=== PATIENT | male | born 1975 | race Caucasian/White ===

== ENCOUNTER 2023-09-25 15:50 | Inpatient (IN) | payer OTHER ==
[2023-09-25] MEDS ORDERED: ONDANSETRON 4 MG/2 ML VIAL IVP PRN (16:10)
[2023-09-25] MEDS ORDERED: LORazepam 2 MG/ML INJ IV PRN (16:10)
[2023-09-25] MEDS: SODIUM CHLORIDE 0.9% 1,000 ML IV STA ×2 (16:27→16:28)
[2023-09-25] MEDS: LORazepam 2 MG/ML INJ IV STA (16:28)
[2023-09-25] MEDS: THIAMINE 100 MG/ML 2 ML VIAL IM STA (16:30)
--- NOTE | 2023-09-25 16:32 | ED ---
General Adult HPI - General Chief complaint: Alcohol Stated complaint: ETOH Time Seen by Provider: 09/25/23 16:01 Source: patient, family, RN notes reviewed, old records reviewed Mode of arrival: wheelchair Limitations: altered mental status - History of Present Illness Initial comments: Patient is a 47-year-old male who presents emergency department over concern for alcohol abuse and alcohol withdrawals. States he does not want to continue to drink. Has a history of withdrawals in the past. Presents for further evaluation at this time. Was brought in by as he is uncomfortable with withdrawing at home. Does not know any rehab facility to go to. Patient's states that he expressed generalized suicidal thoughts, but no blas idea of wanting to hurt himself. Just discussed generally that when he is gone with the family we will have to do. Patient currently intoxicated. Last drink earlier today. Presents for further evaluation. Denies any other acute complaints. - Related Data Home Medications Medication Instructions Recorded Confirmed No Known Home Medications 09/25/23 09/25/23 Allergies Allergy/AdvReac Type Severity Reaction Status Date / Time No Known Allergies Allergy Verified 09/25/23 17:31 Review of Systems ROS Statement: Those systems with pertinent positive or pertinent negative responses have been documented in the HPI. Review of Systems: CONST: Denies fever EYES: Denies blurry vision ENT: Denies nasal congestion C/V: Denies Chest pain RESP: Denies shortness of breath GI: Denies abdominal pain : Denies dysuria SKIN: Denies rash. MSK: Denies joint pain. NEURO: Denies headache ROS Other: All systems not noted in ROS Statement are negative. Past Medical History Past Medical History: No Reported History History of Any Multi-Drug Resistant Organisms: None Reported Additional Past Surgical History / Comment(s): Eye Past Psychological History: No Psychological Hx Reported Smoking Status: Never smoker Past Alcohol Use History: Abuse, Daily Past Drug Use History: None Reported General Exam - General Exam Comments Initial Comments: General: Appears intoxicated with alcohol. HEAD: Normal with no signs of head trauma. EYES: PERRLA, EOMI, conjunctiva normal, no discharge. Pupils are 3 mm and equal bilaterally. ENT: Hearing grossly intact, normal oropharynx. RESPIRATORY: Clear breath sounds bilaterally. No wheezes, rales, or rhonchi. C/V: Regular rate and rhythm. S1 and S2 auscultated, no edema, peripheral pulses 2+ and intact throughout ABD: Abd is soft, nontender, nondistended EXT: Normal range of motion, no obvious deformity SKIN: No rashes or lesions observed on exposed skin. NEURO: Alert and oriented x 4. Cranial nerves II-XII intact. No focal sensory or strength deficits. No active alcohol withdrawals at this time. Limitations: altered mental status Course Vital Signs 09/25/23 09/25/23 15:51 19:51 Temperature 98.0 F Pulse Rate 82 110 H Respiratory 18 18 Rate Blood Pressure 128/96 133/100 O2 Sat by Pulse 96 97 Oximetry Medical Decision Making - Medical Decision Making Was pt. sent in by a medical professional or institution (, PA, COLLISION MECHANIC, urgent care, hospital, or longterm...) When possible be specific @ -No Did you speak to anyone other than the patient for history (EMS, parent, family, police, friend...)? What history was obtained from this source @ -Patient's assist with patient's past medical history. Did you review nursing and triage notes (agree or disagree)? Why? @ -I reviewed and agree with nursing and triage notes Were old charts reviewed (outside hosp., previous admission, EMS record, old EKG, old radiological studies, urgent care reports/EKG's, longterm records)? Report findings @ -Old charts reviewed. Differential Diagnosis (chest pain, altered mental status, abdominal pain women, abdominal pain men, vaginal bleeding, weakness, fever, dyspnea, syncope, headache, dizziness, GI bleed, back pain, seizure, CVA, palpatations, mental health, musculoskeletal)? @ -Alcohol withdrawals, dehydration, acute intoxication. This list is not all inclusive. EKG interpreted by me (3pts min.). @ -As above X-rays interpreted by me (1pt min.). @ -None done CT interpreted by me (1pt min.). @ -None done U/S interpreted by me (1pt. min.). @ -None done What testing was considered but not performed or refused? (CT, X-rays, U/S, labs)? Why? @ -None What meds were considered but not given or refused? Why? @ -None Did you discuss the management of the patient with other professionals (professionals i.e. , PA, COLLISION MECHANIC, lab, RT, psych nurse, 7th grade social studies teacher, director operating, teacher, chief business officer, case therapist)? Give summary @ -I spoke with Dr. Walls who accepted the admission and was in agreement the plan. Was smoking cessation discussed for >3mins.? @ -No Was critical care preformed (if so, how long)? @ -No Were there social determinants of health that impacted care today? How? (Homelessness, low income, unemployed, alcoholism, drug addiction, transportation, low edu. Level, literacy, decrease access to med. care, [facility] [facility], rehab)? @ -No Was there de-escalation of care discussed even if they declined (Discuss DNR or withdrawal of care, Hospice)? DNR status @ -No What co-morbidities impacted this encounter? (DM, HTN, Smoking, COPD, CAD, Cancer, CVA, ARF, Chemo, Hep., AIDS, mental health diagnosis, sleep apnea, morbid obesity)? @ -None Was patient admitted / discharged? Hospital course, mention meds given and route, prescriptions, significant lab abnormalities, going to OR and other pertinent info. @ -Based on the patient's presentation and physical exam, presents emergency department over concern for the early signs of alcohol drugs. Does not plan on drinking if he is discharged. Currently has no significant evidence of withdrawals at this time. However patient appears acutely intoxicated with alcohol at this time. Family states that patient has had nonspecific suicidal statements but is not acutely suicidal. They brought him to the hospital for the withdrawal process and is they are uncertain what else to do at this time. Patient was in agreement this plan does not plan on drinking again. Presents for further evaluation. Vital signs within acceptable limits. EKG shows no signs of acute ischemia.Patient's laboratory studies remarkable for alcohol intoxication at the range of 94. I updated the patient as well as . Patient's petitioned patient at this time for suicidal statements made to her. Psychiatry will be consulted. Suicide precautions ordered. Sitter ordered. Patient will be admitted for alcohol intoxication as well as alcohol withdrawals. Patient was in agreement this plan as well as the . CIWA protocol is ordered. I spoke with the admitting physician, Dr. Walls who accepted the admission. Undiagnosed new problem with uncertain prognosis? @ -No Drug Therapy requiring intensive monitoring for toxicity (Heparin, Nitro, Insulin, Cardizem)? @ -No Were any procedures done? @ -No Diagnosis/symptom? @ -Alcohol intoxication, alcohol withdrawals, suicidal ideations Acute, or Chronic, or Acute on Chronic? @ -Acute Uncomplicated (without systemic symptoms) or Complicated (systemic symptoms)? @ -Complicated Side effects of treatment? @ -None Exacerbation, Progression, or Severe Exacerbation] @ -No Poses a threat to life or bodily function? @ -Yes - Lab Data Result diagrams: 09/25/23 16:20 09/25/23 16:20 Lab Results 09/25/23 09/25/23 09/25/23 Range/Units 16:20 16:20 16:20 WBC 8.9 (3.8-10.6) k/uL RBC 5.36 (4.30-5.90) m/uL Hgb 15.9 (13.0-17.5) gm/dL Hct 48.0 (39.0-53.0) % MCV 89.6 (80.0-100.0) fL MCH 29.6 (25.0-35.0) pg MCHC 33.0 (31.0-37.0) g/dL RDW 13.5 (11.5-15.5) % Plt Count 360 (150-450) k/uL MPV 7.2 Neutrophils % 62 % Lymphocytes % 26 % Monocytes % 8 % Eosinophils % 0 % Basophils % 1 % Neutrophils # 5.5 (1.3-7.7) k/uL Lymphocytes # 2.3 (1.0-4.8) k/uL Monocytes # 0.7 (0-1.0) k/uL Eosinophils # 0.0 (0-0.7) k/uL Basophils # 0.1 (0-0.2) k/uL Sodium 139 (137-145) mmol/L Potassium 4.0 (3.5-5.1) mmol/L Chloride 100 (98-107) mmol/L Carbon Dioxide 23 (22-30) mmol/L Anion Gap 16 mmol/L BUN 8 L (9-20) mg/dL Creatinine 0.72 (0.66-1.25) mg/dL Est GFR (CKD-EPI)AfAm >90 (>60 ml/min/1.73 sqM) Est GFR (CKD-EPI)NonAf >90 (>60 ml/min/1.73 sqM) Glucose 81 (74-99) mg/dL Calcium 9.0 (8.4-10.2) mg/dL Magnesium 2.2 (1.6-2.3) mg/dL Total Bilirubin 0.7 (0.2-1.3) mg/dL AST 60 H (17-59) U/L ALT 75 H (4-49) U/L Alkaline Phosphatase 109 (38-126) U/L Total Protein 7.6 (6.3-8.2) g/dL Albumin 4.8 (3.5-5.0) g/dL Amylase 105 (30-110) U/L Lipase 115 (23-300) U/L Urine Color Colorless Urine Appearance Clear (Clear) Urine pH 6.5 (5.0-8.0) Ur Specific [place] 1.003 (1.001-1.035) Urine Protein Negative (Negative) Urine Glucose (UA) Negative (Negative) Urine Ketones 1+ H (Negative) Urine Blood Negative (Negative) Urine Nitrite Negative (Negative) Urine Bilirubin Negative (Negative) Urine Urobilinogen <2.0 (<2.0) mg/dL Ur Leukocyte Esterase Negative (Negative) Serum Alcohol 384 H* mg/dL - EKG Data -: EKG Interpreted by Me EKG Comments: 12-lead Electrocardiogram Interpretation Note EKG was reviewed and interpreted by myself. 12-lead ECG performed at 1623 is interpreted by me as revealing normal sinus rhythm at a rate of 93 beats per minute. [place] is normal. SC interval is 145 ms, QRS duration is 94 ms, QTc is 390 ms.. There were no ST or T wave abnormalities to suggest myocardial ischemia or injury. R wave progression across the precordium was satisfactory. By my interpretation this EKG is non-diagnostic for acute ischemia. Disposition Clinical Impression: Alcoholic intoxication, Alcohol withdrawal, Suicidal ideations Disposition: ADMITTED IP TO THIS HOSP Condition: Stable Time of Disposition: 18:05
[2023-09-25 16:45] LABS: Basophils # (A) 0.1 k/uL (0-0.2); Basophils % (A) 1 %; Eosinophils % (A) 0 %; HGB 15.9 gm/dL (13.0-17.5); Lymphocytes # (A) 2.3 k/uL (1.0-4.8); Lymphocytes % (A) 26 %; MCH 29.6 pg (25.0-35.0); MCV 89.6 fL (80.0-100.0); Mean Platelet Volume 7.2; Monocytes # (A) 0.7 k/uL (0-1.0); Monocytes % (A) 8 %; Neutrophils # (A) 5.5 k/uL (1.3-7.7); Neutrophils % (A) 62 %; Platelet Count 360 k/uL (150-450); RBC 5.36 m/uL (4.30-5.90); RDW 13.5 % (11.5-15.5); WBC 8.9 k/uL (3.8-10.6)
[2023-09-25 17:02] LABS: ALT 75 U/L (4-49); AST 60 U/L (17-59); African American GFR (CKD) >90 (>60 ml/min/1.73 sqM); Albumin 4.8 g/dL (3.5-5.0); Alkaline Phosphatase 109 U/L (38-126); Amylase 105 U/L (30-110); Anion Gap 16 mmol/L; Blood Urea Nitrogen 8 mg/dL (9-20); Carbon Dioxide 23 mmol/L (22-30); Chloride 100 mmol/L (98-107); Glucose 81 mg/dL (74-99); Lipase 115 U/L (23-300); Magnesium 2.2 mg/dL (1.6-2.3); Non-African American GFR(CKD) >90 (>60 ml/min/1.73 sqM); Sodium 139 mmol/L (137-145); Total Bilirubin 0.7 mg/dL (0.2-1.3); Total Protein 7.6 g/dL (6.3-8.2)
[2023-09-25 17:21] LABS: Alcohol 384 mg/dL
[2023-09-25 17:59] LABS: Appearance,Urine Clear (Clear); Bilirubin,Urine Negative (Negative); Blood,Urine Negative (Negative); Color,Urine Colorless; Glucose,Urine (UA) Negative (Negative); Ketones,Urine 1+ (Negative); Leukocyte Esterase,Urine Negative (Negative); Nitrite,Urine Negative (Negative); PH, Urine 6.5 (5.0-8.0); Protein,Urine Negative (Negative); Specific Gravity,Urine 1.003 (1.001-1.035); Urobilinogen,Urine <2.0 mg/dL (<2.0)
[2023-09-25] MEDS ORDERED: ACETAMINOPHEN TAB 325 MG TAB PO PRN (18:16)
[2023-09-25] MEDS ORDERED: NALOXONE 0.4 MG/ML 1 ML VIAL IV PRN (18:16)
[2023-09-25] MEDS: LORazepam 2 MG/ML INJ IV PRN (19:57)
[2023-09-25] MEDS: NICOTINE 14MG/24HR PATCH TRANSDERM STA (22:21)
--- NOTE | 2023-09-26 02:33 | HP ---
HISTORY AND PHYSICAL HISTORY OF PRESENT ILLNESS: A 47-year-old white male, alcohol abuse, alcohol withdrawals, came in due to withdrawals, uncomfortable, withdrawing at home. He has expressed suicidal from his . He is currently intoxicated. He came to the hospital. HOME MEDICATIONS: Negative. ALLERGIES: Negative. REVIEW OF SYSTEMS: A 14-point review of systems otherwise negative. PAST MEDICAL HISTORY: Daily alcohol, excessive alcohol abuse. PHYSICAL EXAMINATION: HEENT: Pupils are equal, round, reactive. Head, normocephalic, atraumatic. LUNGS: Clear. CARDIOVASCULAR: S1, S2. ABDOMEN: Soft. EXTREMITIES: Mild tremors. NEUROLOGIC: Cranial nerves are intact. PSYCH: Altered mental status. VITAL SIGNS: Temp 98, pulse is 82 to 110, respiratory rate 16 to 18, blood pressure 120s to 130s over 96 to 100, O2 of 96% to 97%. LABORATORY DATA: White count is 8.9, hemoglobin is 15.9, sodium 139, potassium 4.0. EKG, sinus rhythm. ASSESSMENT: Alcohol intoxication, alcohol withdrawal, suicidal ideations. Psych consult. [facility] protocol. Sitter due to depression. Wait for psychiatrist. Prognosis guarded. Alcohol suppression therapy will be discussed with the patient. MMODL / IJN: [id number] /
[2023-09-26] MEDS: SODIUM CHLORIDE 0.9% 1,000 ML IV ONE (06:24)
[2023-09-26] MEDS: CALCIUM CARBONATE 500 MG CHEWABLE PO STA (07:24)
[2023-09-26] MEDS: LORazepam 2 MG/ML INJ IV PRN (08:02)
[2023-09-26] MEDS: THIAMINE 100 MG TAB PO SCH (08:58)
[2023-09-26] MEDS: SODIUM CHLORIDE 0.9% 1,000 ML IV SCH (11:43)
[2023-09-26 12:22] LABS: ALT 73 U/L (4-49); AST 58 U/L (17-59); African American GFR (CKD) >90 (>60 ml/min/1.73 sqM); Albumin 4.2 g/dL (3.5-5.0); Albumin/Globulin Ratio 1.6; Alkaline Phosphatase 103 U/L (38-126); Anion Gap 8 mmol/L; Blood Urea Nitrogen 12 mg/dL (9-20); Calcium 9.1 mg/dL (8.4-10.2); Carbon Dioxide 24 mmol/L (22-30); Chloride 105 mmol/L (98-107); Globulin 2.7 g/dL; Glucose 88 mg/dL (74-99); Non-African American GFR(CKD) >90 (>60 ml/min/1.73 sqM); Potassium 4.2 mmol/L (3.5-5.1); Sodium 137 mmol/L (137-145); Total Bilirubin 0.7 mg/dL (0.2-1.3); Total Protein 6.9 g/dL (6.3-8.2)
--- NOTE | 2023-09-26 14:29 | P.CN ---
Psychiatric Consult - . Consult date: 09/26/23 Consult:: 09/26/23 13:47 IDENTIFYING DATA: This patient is a 27-year-old male currently lives alone in a house, he is , he has 2 kids, he works in [employer] REASON FOR REFERRAL: Psychiatry was consulted for suicidal ideations, petitioned and alcohol abuse HISTORY OF PRESENT ILLNESS: The patient presented to the hospital on 09/24 complaining of alcohol use and withdrawal. Patient was intoxicated with a blood alcohol level of 3-4. LFTs were elevated. Patient apparently had a history of severe withdrawals, he apparently was suicidal, with no plan. Patient's Margaret filled out a petition stating that patient has a chronic history of alcohol use which has been worsening and affecting him and his life, petition also states that he told the to take care of the kids because he was going to shoot himself with his gun. Patient's nurse claims that patient has poor recollection of what happened, has been going through withdrawals and is tachycardic. Patient's was agreeable to speak to senior copywriter with patient's permission outside in the hallway. She states that patient and him has been in her have been going through a divorce and she has moved out already. She states that the final hearing for the divorce is on Friday. She states that he has been dealing with chronic alcohol use which has progressively worsened. She states that he called her asking her for help, claiming that he was not able to stop using alcohol and was feeling very depressed, she also states that he informed her that he was going to shoot himself. Patient was seen at the bedside and agreeable to speak to senior copywriter. He claims that his alcohol use has worsened, claims that he has been feeling depressed, endorsing anxiety at this time due to the withdrawals from the alcohol. He claims that he "cannot stop" and was minimizing his need for being in the hospital and wanted to be discharged. He appears to have very poor insight and judgment. He is now minimizing the suicidal statements that he was making earlier. Claims that his sleep and appetite are poor, claims that he is not able to take care of himself at home well. At this time patient denies any current suicidal or homical ideations, intent or plan. Patient denies any auditory, visual hallucinations and denies any paranoia or delusions. Patients admits to using alcohol as noted above for several years, heavy use, denies any other recreational drug use. Admits to nicotine dependence. Claims that he has access to firearms at home. He was focused on discharge and minimizing. PAST PSYCHIATRIC HISTORY: Patient has a a history of alcohol use, depression and anxiety. Patient denies being on any psychiatric medications. Patient denies any previous psychiatric hospitalizations. Patient denies any psychiatric outpatient follow-up. He does claim that he works with a therapist named Hermilo from [employer]. Patient denies any history of suicide attempts in the past. He did state that he has access to guns at home Past Medical History: No Reported History History of Any Multi-Drug Resistant Organisms: None Reported Additional Past Surgical History / Comment(s): Eye Past Psychological History: No Psychological Hx Reported Smoking Status: Never smoker Past Alcohol Use History: Abuse, Daily Past Drug Use History: None Reported ALLERGIES: as per EMR. CHEMICAL DEPENDENCY HISTORY: as per HPI. FAMILY PSYCHIATRIC/SUBSTANCE USE HISTORY: Denies SOCIAL HISTORY: Patient was born and raised in [place] and also in [place]. He states that he completed high school and did some college and also finished trade school. He states that he does not have a DUI in the past or no other legal issues. He has 2 kids, he is , he lives alone in a house. MENTAL STATUS EXAM: General Appearance: Patient appears to be mildly overweight, short hair, stated age is alert, superficial and evasive. Patient appears to have [poor hygiene and grooming wearing hospital gown with fair eye contact. Behavior: Patient is calmly lying in bed without any agitated behavior. Mild tremors. Speech: Patient's speech is fluent and nonpressured. Hesitant Mood/Affect: Patient reports their mood is "depressed", affect is congruent and constricted Suicidality/Homicidality: Patient denies having any suicidal or homicidal ideation intent or plan. Perceptions: Patient denies any visual hallucinations and denies any auditory hallucinations Though content/process: There is no evidence of any delusional thought content and thought process is linear and goal-directed. Minimizing his need for treatment and to be in the hospital. Memory and concentration: AOX3, grossly intact for the purposes of this session. Can spell "WORLD" backwards Judgment and insight: Poor/impulsive IMPRESSIONS: Depressive disorder unspecified Alcohol use disorder, severe dependence, currently in withdrawal Nicotine dependence Marital problems PLAN: -At this time patient DOES meet criteria for inpatient psychiatric admission. -Would recommend the following medication changes/additions: Will hold off on antidepressant medications until patient is admitted to the mental health unit. Continue medical management for alcohol withdrawal. Started Librium 25 mg 3 times daily scheduled for alcohol withdrawal with 1 dose of 50 mg now. -CIWA protocol with PRN Ativan for alcohol withdrawal. Continue to monitor vital signs. -Continue 1:1 sitter for safety until patient is admitted to the mental health unit -Cannot leave AMA at this time. Patient will need a petition and certification if attempting to leave AMA. -Wardrobe Coordinator spoke with patient about substance abuse and the harmful effects on medical and mental health, patient verbally understood and agreed. -When medically stable, patient is eligible for transfer to a psych bed when available. Patient should remain on the medical floors for alcohol withdrawal treatment for 24 to 48 hours at least before being cleared for psych -Communicated plan to patient's nurse -Psychiatry will sign off at this time -Please contact with any questions. 09/26/23 14:21
[2023-09-26] MEDS: chlordiazePOXIDE 25 MG CAP PO STA (14:39)
--- NOTE | 2023-09-26 15:02 | P.PN ---
Subjective Progress Note Date: 09/26/23 * 47-year-old male who presents emergency department over concern for alcohol abuse and alcohol withdrawals. Workup initiated in ER included hematology which were essentially negative, serum chemistry obtained showed normal sodium and potassium levels, liver profile obtained showed AST of 60 ALT of 75. Serum alcohol level 384 * 09/26/23 : Patient seen and evaluated, patient been monitored for alcohol withdrawal, vitals reviewed, follow-up on CMP and CBC levels ordered. Patient had suicidal ideation for which psychiatry consulted on admission. Patient counseled cannot leave AGAINST MEDICAL ADVICE noted to have sinus a Cardia fluid bolus given to be given 1 dose of phenobarbital as well at bedside will need consultations from car psychiatry REVIEW OF SYSTEMS: , anxious CONSTITUTIONAL: No fever, no malaise, no fatigue. HEENT: No recent visual problems or hearing problems. Denied any sore throat. CARDIOVASCULAR: No chest pain, orthopnea, PND, no palpitations, no syncope. PULMONARY: No shortness of breath, no cough, no hemoptysis. GASTROINTESTINAL: No diarrhea, no nausea, no vomiting, no abdominal pain. NEUROLOGICAL: No headaches, no weakness, no numbness. HEMATOLOGICAL: Denies any bleeding or petechiae. GENITOURINARY: Denies any burning micturition, frequency, or urgency. MUSCULOSKELETAL/RHEUMATOLOGICAL: Denies any joint pain, swelling, or any muscle pain. ENDOCRINE: Denies any polyuria or polydipsia. PHYSICAL EXAMINATION: GENERAL: The patient is alert and oriented x3, not in any acute distress. Well developed, well nourished. HEENT: Pupils are round and equally reacting to light. EOMI. CARDIOVASCULAR: S1 and S2 present. tachycardia noted PULMONARY: Chest is clear to auscultation, no wheezing or crackles. ABDOMEN: Soft, nontender, nondistended, normoactive bowel sounds. No palpable organomegaly. MUSCULOSKELETAL: No joint swelling or deformity. EXTREMITIES: No cyanosis, clubbing, or pedal edema. NEUROLOGICAL: Gross neurological examination did not reveal any focal deficits. SKIN: No rashes. Assessment and plan Alcohol intoxication with impending withdrawal Suicidal ideation Transaminitis secondary to alcohol use sinus tachycardia * In regards to alcohol withdrawal continue to monitor on CIWA protocol, use Ativan as needed monitor for withdrawal seizures * Regards to suicidal ideation continue to maintain maximum safety precautions, continue with sitter * Regards to transaminitis follow-up on liver profile. Continue patient on fluid resuscitation * Status is full code Objective - Vital Signs Vital signs: Vital Signs Temp 98.0 F 09/25/23 15:51 Pulse 114 H 09/26/23 10:15 Resp 17 09/26/23 10:15 BP 123/90 09/26/23 10:15 Pulse Ox 95 09/26/23 10:15 FiO2 Intake & Output 09/25/23 09/26/23 09/26/23 18:59 06:59 18:59 Weight 95.254 kg - Labs CBC & Chem 7: 09/25/23 16:20 09/26/23 11:23 Labs: Abnormal Lab Results - Last 24 Hours (Table) 09/25/23 09/25/23 Range/Units 16:20 16:20 BUN 8 L (9-20) mg/dL AST 60 H (17-59) U/L ALT 75 H (4-49) U/L Urine Ketones 1+ H (Negative) Serum Alcohol 384 H* mg/dL
[2023-09-26] MEDS: METOPROLOL TARTRATE 5 MG/5 ML VIAL IVP PRN (15:04)
[2023-09-26] MEDS: PHENobarbital SODIUM 130 MG/ML 1 ML VIAL IV STA (15:22)
[2023-09-26] MEDS: chlordiazePOXIDE 25 MG CAP PO SCH (15:40)
[2023-09-26 16:33] LABS: Basophils # (A) 0.06 X 10*3/uL (0.00-0.10); Basophils % (A) 0.7 %; Eosinophils # (A) 0.01 X 10*3/uL (0.04-0.35); Eosinophils % (A) 0.1 %; HCT 43.2 % (39.6-50.0); HGB 14.6 g/dL (13.0-17.0); Lymphocytes # (A) 1.46 X 10*3/uL (0.90-5.00); Lymphocytes % (A) 16.1 %; MCH 29.3 pg (27.0-32.0); MCHC 33.8 g/dL (32.0-37.0); MCV 86.6 FL (80.0-97.0); Mean Platelet Volume 10.2 FL (9.5-12.2); Monocytes % (A) 12.1 %; NRBC Per 100 WBC 0 X 10*3/uL (0.00-0.01); Neutrophils # (A) 6.38 X 10*3/uL (1.80-7.70); Neutrophils % (A) 70.4 %; Platelet Count 301 X 10*3/uL (140-440); RBC 4.99 X 10*6/uL (4.40-5.60); RDW 13.8 % (11.5-14.5); WBC 9.06 X 10*3/uL (4.50-10.00)
[2023-09-26] MEDS: NICOTINE 21MG/24HR PATCH TRANSDERM SCH (17:35)
[2023-09-27 07:33] LABS: HCT 44.7 % (39.0-53.0); HGB 14.6 gm/dL (13.0-17.5); MCH 29.5 pg (25.0-35.0); MCHC 32.7 g/dL (31.0-37.0); MCV 90.4 fL (80.0-100.0); Mean Platelet Volume 8.1; Platelet Count 275 k/uL (150-450); RBC 4.94 m/uL (4.30-5.90); RDW 13.6 % (11.5-15.5); WBC 8.5 k/uL (3.8-10.6)
[2023-09-27 07:40] LABS: ALT 66 U/L (4-49); AST 47 U/L (17-59); African American GFR (CKD) >90 (>60 ml/min/1.73 sqM); Albumin 3.8 g/dL (3.5-5.0); Alkaline Phosphatase 82 U/L (38-126); Anion Gap 9 mmol/L; Blood Urea Nitrogen 14 mg/dL (9-20); Calcium 8.9 mg/dL (8.4-10.2); Carbon Dioxide 26 mmol/L (22-30); Chloride 102 mmol/L (98-107); Glucose 73 mg/dL (74-99); Non-African American GFR(CKD) >90 (>60 ml/min/1.73 sqM); Potassium 3.5 mmol/L (3.5-5.1); Sodium 137 mmol/L (137-145); Total Bilirubin 1.3 mg/dL (0.2-1.3); Total Protein 6.3 g/dL (6.3-8.2)
--- NOTE | 2023-09-27 13:23 | P.PN ---
Subjective Progress Note Date: 09/27/23 * 47-year-old male who presents emergency department over concern for alcohol abuse and alcohol withdrawals. Workup initiated in ER included hematology which were essentially negative, serum chemistry obtained showed normal sodium and potassium levels, liver profile obtained showed AST of 60 ALT of 75. Serum alcohol level 384 * 09/26/23 : Patient seen and evaluated, patient been monitored for alcohol withdrawal, vitals reviewed, follow-up on CMP and CBC levels ordered. Patient had suicidal ideation for which psychiatry consulted on admission. Patient counseled cannot leave AGAINST MEDICAL ADVICE noted to have sinus a Cardia fluid bolus given to be given 1 dose of phenobarbital as well at bedside will need consultations from psychiatry * 09/27/23 : patient seen and evaluated bedside, blood work reviewed, vitals reviewed, heart rate improving continue fluid resuscitation liver profile reviewed a LT 66 AST 43 bilirubin 1.3, patient remains asymptomatic denies of any acute issues patient states he is feeling better. Patient explained he needs to follow-up with psychiatry and will need to go to behavioral health unit REVIEW OF SYSTEMS: , Not anxious CONSTITUTIONAL: No fever, no malaise, no fatigue. HEENT: No recent visual problems or hearing problems. Denied any sore throat. CARDIOVASCULAR: No chest pain, orthopnea, PND, no palpitations, no syncope. PULMONARY: No shortness of breath, no cough, no hemoptysis. GASTROINTESTINAL: No diarrhea, no nausea, no vomiting, no abdominal pain. NEUROLOGICAL: No headaches, no weakness, no numbness. HEMATOLOGICAL: Denies any bleeding or petechiae. GENITOURINARY: Denies any burning micturition, frequency, or urgency. MUSCULOSKELETAL/RHEUMATOLOGICAL: Denies any joint pain, swelling, or any muscle pain. ENDOCRINE: Denies any polyuria or polydipsia. PHYSICAL EXAMINATION: GENERAL: The patient is alert and oriented x3, not in any acute distress. Well developed, well nourished. HEENT: Pupils are round and equally reacting to light. EOMI. CARDIOVASCULAR: S1 and S2 present. tachycardia noted PULMONARY: Chest is clear to auscultation, no wheezing or crackles. ABDOMEN: Soft, nontender, nondistended, normoactive bowel sounds. No palpable organomegaly. MUSCULOSKELETAL: No joint swelling or deformity. EXTREMITIES: No cyanosis, clubbing, or pedal edema. NEUROLOGICAL: Gross neurological examination did not reveal any focal deficits. SKIN: No rashes. Assessment and plan Alcohol intoxication with impending withdrawal Suicidal ideation Transaminitis secondary to alcohol use sinus tachycardia * In regards to alcohol withdrawal continue to monitor on CIWA protocol, use Ativan as needed monitor for withdrawal seizures, continue Librium * Regards to suicidal ideation continue to maintain maximum safety precautions, continue with sitter, will need inpatient psychiatric hospitalization once patient has recovered from withdrawal * Regards to transaminitis follow-up on liver profile. Continue patient on fluid resuscitation * Transient elevation in blood pressure noted from withdrawal as needed hydralazine ordered * Status is full code Objective - Vital Signs Vital signs: Vital Signs Temp 97.1 F L 09/26/23 23:19 Pulse 102 H 09/27/23 08:00 Resp 16 09/27/23 08:00 BP 140/94 09/27/23 08:00 Pulse Ox 97 09/27/23 08:00 FiO2 Intake & Output 09/26/23 09/27/23 09/27/23 18:59 06:59 18:59 Intake Total 240 480 118 Balance 240 480 118 Weight 95.254 kg Intake: Oral 240 480 118 Other: # Voids 1 2 - Labs CBC & Chem 7: 09/27/23 06:07 09/27/23 06:07 Labs: Abnormal Lab Results - Last 24 Hours (Table) 09/26/23 09/26/23 09/27/23 Range/Units 11:23 11:23 06:07 Immature Gran # 0.05 H (0.00-0.04) X 10*3/uL Monocytes # 1.10 H (0.20-1.00) X 10*3/uL Eosinophils # 0.01 L (0.04-0.35) X 10*3/uL Glucose 73 L (74-99) mg/dL ALT 73 H 66 H (4-49) U/L
[2023-09-27] MEDS: hydrALAZINE HCL 20 MG/ML 1 ML VIAL IVP PRN (14:24)
[2023-09-28 09:40] LABS: HCT 52.8 % (39.0-53.0); HGB 16.7 gm/dL (13.0-17.5); MCH 29.7 pg (25.0-35.0); MCHC 31.7 g/dL (31.0-37.0); MCV 93.8 fL (80.0-100.0); Mean Platelet Volume 7.7; Platelet Count 267 k/uL (150-450); RBC 5.62 m/uL (4.30-5.90); RDW 13.5 % (11.5-15.5); WBC 9.4 k/uL (3.8-10.6)
[2023-09-28 09:59] LABS: ALT 109 U/L (4-49); AST 77 U/L (17-59); African American GFR (CKD) >90 (>60 ml/min/1.73 sqM); Albumin 4.4 g/dL (3.5-5.0); Alkaline Phosphatase 84 U/L (38-126); Anion Gap 7 mmol/L; Blood Urea Nitrogen 14 mg/dL (9-20); Calcium 9.6 mg/dL (8.4-10.2); Carbon Dioxide 25 mmol/L (22-30); Chloride 106 mmol/L (98-107); Glucose 91 mg/dL (74-99); Non-African American GFR(CKD) >90 (>60 ml/min/1.73 sqM); Sodium 138 mmol/L (137-145); Total Bilirubin 1.1 mg/dL (0.2-1.3); Total Protein 7.3 g/dL (6.3-8.2)
--- NOTE | 2023-09-28 11:56 | P.PN ---
Subjective Progress Note Date: 09/28/23 * 47-year-old male who presents emergency department over concern for alcohol abuse and alcohol withdrawals. Workup initiated in ER included hematology which were essentially negative, serum chemistry obtained showed normal sodium and potassium levels, liver profile obtained showed AST of 60 ALT of 75. Serum alcohol level 384 * 09/26/23 : Patient seen and evaluated, patient been monitored for alcohol withdrawal, vitals reviewed, follow-up on CMP and CBC levels ordered. Patient had suicidal ideation for which psychiatry consulted on admission. Patient counseled cannot leave AGAINST MEDICAL ADVICE noted to have sinus a Cardia fluid bolus given to be given 1 dose of phenobarbital as well at bedside will need consultations from psychiatry * 09/27/23 : patient seen and evaluated bedside, blood work reviewed, vitals reviewed, heart rate improving continue fluid resuscitation liver profile reviewed a LT 66 AST 43 bilirubin 1.3, patient remains asymptomatic denies of any acute issues patient states he is feeling better. Patient explained he needs to follow-up with psychiatry and will need to go to behavioral health unit * 09/28/23: Patient seen and evaluated bedside, on evaluation patient is awake and alert, patient continues to have paroxysmal tachycardia, continue patient on telemonitoring continue to monitor for alcohol withdrawal. Hemodynamically blood pressure has been stable. Patient needs one-to-one sitter for safety secondary to psychiatry recommendations will need to be discharged to inpatient psychiatric hospitalization once patient has completely detox from alcohol continue to use Ativan as needed REVIEW OF SYSTEMS: , Not anxious CONSTITUTIONAL: No fever, no malaise, no fatigue. HEENT: No recent visual problems or hearing problems. Denied any sore throat. CARDIOVASCULAR: No chest pain, orthopnea, PND, no palpitations, no syncope. PULMONARY: No shortness of breath, no cough, no hemoptysis. GASTROINTESTINAL: No diarrhea, no nausea, no vomiting, no abdominal pain. NEUROLOGICAL: No headaches, no weakness, no numbness. HEMATOLOGICAL: Denies any bleeding or petechiae. GENITOURINARY: Denies any burning micturition, frequency, or urgency. MUSCULOSKELETAL/RHEUMATOLOGICAL: Denies any joint pain, swelling, or any muscle pain. ENDOCRINE: Denies any polyuria or polydipsia. PHYSICAL EXAMINATION: GENERAL: The patient is alert and oriented x3, not in any acute distress. Well developed, well nourished. HEENT: Pupils are round and equally reacting to light. EOMI. CARDIOVASCULAR: S1 and S2 present. tachycardia noted PULMONARY: Chest is clear to auscultation, no wheezing or crackles. ABDOMEN: Soft, nontender, nondistended, normoactive bowel sounds. No palpable organomegaly. MUSCULOSKELETAL: No joint swelling or deformity. EXTREMITIES: No cyanosis, clubbing, or pedal edema. NEUROLOGICAL: Gross neurological examination did not reveal any focal deficits. SKIN: No rashes. Assessment and plan Alcohol intoxication with impending withdrawal Suicidal ideation Transaminitis secondary to alcohol use sinus tachycardia * In regards to alcohol withdrawal continue to monitor on CIWA protocol, use Ativan as needed monitor for withdrawal seizures, continue Librium * Regards to suicidal ideation continue to maintain maximum safety precautions, continue with sitter, will need inpatient psychiatric hospitalization once patient has recovered from withdrawal * Regards to tachycardia, echocardiogram ordered, EKG ordered * Regards to transaminitis follow-up on liver profile. Continue patient on fluid resuscitation * Transient elevation in blood pressure noted from withdrawal as needed hydralazine ordered * Patient requesting to speak with psychiatry again, reconsult ordered * Status is full code Objective - Vital Signs Vital signs: Vital Signs Temp 98 F 09/28/23 08:00 Pulse 123 H 09/28/23 08:00 Resp 16 09/28/23 08:00 BP 123/88 09/28/23 08:00 Pulse Ox 98 09/28/23 08:00 FiO2 Intake & Output 09/27/23 09/28/23 09/28/23 18:59 06:59 18:59 Intake Total 354 Balance 354 Intake: Oral 354 Other: # Voids 3 - Labs CBC & Chem 7: 09/28/23 09:17 09/28/23 09:17
--- NOTE | 2023-09-28 15:15 | P.CN ---
Psychiatric Consult - . Consult date: 09/28/23 Consult:: 09/28/23 15:10 patient was seen for half hour and reviewed the chart/ his problems include alcohol use and when he came into the hospital he had no recollection but evidently had gotten drunk enough to make some suicidal statements. Subjective: Patient says he has never been suicidal in his whole life and is not sure what he said when he was drunk but he does not feel suicidal and has no desire to end his life or to hurt anybody else including his ex-. He denies knowing the past any manic episodes he denies any serious history of depression he recognizes that drinking heavily as a danger saying that he needs to get some help and stay off of that. He denies hearing any voices or seeing anything that nobody else can see. Objective the patient is oriented to person place time and circumstance he did not show any evidence of irritability on the mental status when he would run into some difficulty with performance he simply calm himself and thought things through and did the best he could. No pressured speech no flight of ideas he had a lot of trouble with concentration so he had trouble spelling world backward try to 3 or 4 times in gave up he could name [place] although he tried to throw [place] and as an added bonus. He could subtract 7 from 93 he could name the last 6 presidents although he was just a bit slow. I do not see however any decreased psychomotor activity or general slowness of his thinking or pressure. For abstraction he did well when asked how cats and snakes alike he said that their animals with teeth and details. For the grass looks greener on the side defense he said his telling him to make the best of what you have. Assessment no signs of psychosis no evidence of bipolar he has not physically depressed and denies any suicidality or homicidality of course if he goes back to drinking all bets are off but he would not be drinking because of psychiatric problem and is willing to get some help in dealing with that. He was able to share a convincing discharge plan for doing well after discharge. Plan I do not see symptoms that would justify admission to the psychiatric unit at this time
[2023-09-29 09:53] VITALS: TEMP 98.3
[2023-09-29 12:09] VITALS: BP 138/92; PULSE 98; RESP 16
[2023-09-29] MEDS: METOPROLOL TARTRATE 25 MG TAB PO SCH (12:50)
--- NOTE | 2023-09-29 18:05 | CA ---
Transthoracic Echo Report Name: Salvatore Yuen Age: 47 Gender: M : 1975 Exam Date: 09/29/2023 09:09 Exam Location: [place] [facility] Ht (in): 68 Wt (lb): 210 Ordering Physician: Chantel Finn MD Attending/Referring Phys: Cogeneration Operator Tia Dumont RCS Procedure CPT: Indications: Tachycardia card suspect cardiomyopathy Cardiac Hx: Technical Quality: Technically difficult study Contrast 1: Definity Total Dose (mL): 2 Contrast 2: Total Dose (mL): MEASUREMENTS (Male / Female) Normal Values 2D ECHO LV Diastolic Diameter PLAX 3.9 cm 4.2 - 5.9 / 3.9 - 5.3 cm LV Systolic Diameter PLAX 2.6 cm IVS Diastolic Thickness 0.8 cm 0.6 - 1.0 / 0.6 - 0.9 cm LVPW Diastolic Thickness 1.0 cm 0.6 - 1.0 / 0.6 - 0.9 cm LV Relative Wall Thickness 0.5 RV Internal Dim ED PLAX 2.7 cm LVOT Diameter 2.1 cm LV Diastolic Volume MOD BP 92.1 cm??? 67 - 155 / 56 - 104 cm??? LV Systolic Volume MOD BP 29.6 cm??? 22 - 58 / 19 - 49 cm??? LV Ejection Fraction MOD BP 67.9 % >= 55 % LV Cardiac Index MOD BP 2652.6 cm???/min???m??? LV Diastolic Volume MOD 4C 90.1 cm??? LV Systolic Volume MOD 4C 31.1 cm??? LV Ejection Fraction MOD 4C 65.5 % LV Cardiac Index MOD 4C 2504.8 cm???/min???m??? LV Diastolic Length 4C 8.2 cm LV Systolic Length 4C 6.7 cm LV Diastolic Volume MOD 2C 92.6 cm??? LV Systolic Volume MOD 2C 28.1 cm??? LV Ejection Fraction MOD 2C 69.7 % LV Cardiac Index MOD 2C 2740.4 cm???/min???m??? LV Diastolic Length 2C 8.4 cm LV Systolic Length 2C 6.8 cm LA Volume 43.8 cm??? 18 - 58 / 22 - 52 cm??? LA Volume Index 20.2 cm???/m??? 16 - 28 cm???/m??? Ascending Aorta Diameter 3.5 cm DOPPLER AV Peak Velocity 126.3 cm/s AV Peak Gradient 6.4 mmHg AV Mean Velocity 93.4 cm/s AV Mean Gradient 3.8 mmHg AV Velocity Time Integral 20.3 cm LVOT Peak Velocity 118.1 cm/s LVOT Peak Gradient 5.6 mmHg LVOT Velocity Time Integral 20.5 cm LVOT Stroke Volume 71.7 cm??? LVOT Stroke Volume Index 34.4 ml/m??? LVOT Cardiac Index 3042.6 cm???/min???m??? AV Area Cont Eq vti 3.5 cm??? AV Area Cont Eq pk 3.3 cm??? MV Area PHT 4.6 cm??? Mitral E Point Velocity 45.7 cm/s Mitral A Point Velocity 74.1 cm/s Mitral E to A Ratio 0.6 MV Deceleration Time 165.4 ms PV Peak Velocity 84.4 cm/s PV Peak Gradient 2.8 mmHg FINDINGS Left Ventricle Left ventricular ejection fraction is estimated at 60-65 %. Left ventricular wall thickness normal. Left ventricular cavity size normal. No obvious regional wall motion abnormalities. Grade 1 diastolic function. Right Ventricle Normal right ventricular size and function. Unable to estimate right ventricular systolic function. Right Atrium Right atrium not well visualized. Left Atrium Normal left atrial size. Mitral Valve Structurally normal mitral valve. No mitral stenosis, regurgitation or prolapse. Aortic Valve Aortic valve not well visualized. No aortic stenosis. No aortic regurgitation. Tricuspid Valve Structurally normal tricuspid valve. No tricuspid stenosis, regurgitation or prolapse. Pulmonic Valve Pulmonic valve not well visualized. No pulmonic stenosis. No pulmonic regurgitation. Pericardium No pericardial effusion. Aorta Normal size aortic root and proximal ascending aorta. CONCLUSIONS Normal LV size and systolic function without segmental wall motion abnormalities Previewed by: Dr. Lance Luu MD (Electronically Signed) Final Date: 29 September 2023 18:05
== END 2023-09-29 13:31 | disposition left against medical advice (07) | DRG 897 ==
LOC: EC 15:50 → 4SSUR 18:17 → 3SCARD 09-26 07:07
PROVIDERS: ADMIT Family Medicine; ATTEND Family Medicine
PROC: HZ2ZZZZ Detoxification Services for Substance Abuse Treatment (ICD-10-PCS; principal; 2023-09-25)
DX: F10.229 Alcohol dependence with intoxication, unspecified (principal); R45.851 Suicidal ideations; F10.239 Alcohol dependence with withdrawal, unspecified; Y90.8 Blood alcohol level of 240 mg/100 ml or more; R74.01 Elevation of levels of liver transaminase levels; I47.9 Paroxysmal tachycardia, unspecified; F32.A Depression, unspecified; F17.200 Nicotine dependence, unspecified, uncomplicated; Z28.310 Unvaccinated for COVID-19; Z63.5 Disruption of family by separation and divorce; Z63.0 Problems in relationship with spouse or partner
CPT/HCPCS: 36415; 80053; 80320; 81003; 82150; 83690; 83735; 85025; 85027; 93005; 93306; 96361; 96372; 96374; 96375; 96376; 99285